=== PATIENT | male | born 2000 | race African-American/Black ===

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

== ENCOUNTER 2021-01-24 11:48 | Emergency (ER) | payer OTHER ==
[2021-01-24] MEDS ORDERED: Ibuprofen 600 MG TAB ONE (12:19)
== END 2021-01-24 13:05 | disposition home or self-care (01) ==
LOC: MADERS 11:48
DX: R07.89 Other chest pain (principal); F17.210 Nicotine dependence, cigarettes, uncomplicated
CPT/HCPCS: 71046; 93005

== ENCOUNTER 2021-07-31 09:52 | Emergency (ER) | payer OTHER ==
[2021-08-01 11:22] LABS: SARS-CoV-2 PCR by NAA Not Detected (NotDetected)
== END 2021-07-31 10:47 | disposition home or self-care (01) ==
LOC: MADERS 09:52
DX: J06.9 Acute upper respiratory infection, unspecified (principal); Z20.822 Contact with and (suspected) exposure to COVID-19; F17.210 Nicotine dependence, cigarettes, uncomplicated
CPT/HCPCS: 99284; U0003; U0005